=== PATIENT | female | born 1955 | race Caucasian/White ===

== ENCOUNTER 2017-12-04 07:03 | Day surgery (SDC) | payer OTHER ==
[2017-12-04] MEDS ORDERED: MIDAZOLAM 1 MG/ML 2 ML INJ ×3 (08:54)
[2017-12-04] MEDS ORDERED: FENTAnyl 50 MCG/ML VIAL (08:54)
== END 2017-12-04 10:19 | disposition home or self-care (01) ==
LOC: GIL 07:03
DX: Z12.11 Encounter for screening for malignant neoplasm of colon (principal); K64.8 Other hemorrhoids
CPT/HCPCS: 45378